=== PATIENT | female | born 1980 | race Hispanic/Latino ===

== ENCOUNTER 2016-06-17 09:45 | Emergency (ER) | payer OTHER ==
[~2016-06-17] VITALS: Ht 147.3 cm; Wt 81.8 kg
[~2016-06-17 09:45] MED LIST: ASPI-973 PO; BUPR150T12 PO; FLUO20CA25 PO; WARF5TAB PO; WARF7.5T4 PO
[2016-06-17 09:49] VITALS: BP 135/93; PULSE 72; RESP 18; O2SAT 99
--- NOTE | 2016-06-17 10:00 | ED.REPORT ---
HPI-General Illness Date of Service Jun 17, 2016 ED Provider: Jose Elias Feliciano MD A 35 year old female with a history of mechanical heart valve insertion (2012) on warfarin presents to the ED from her cardiology clinic complaining of unexplained bruising/pain to dorsum of left wrist and right upper abdomen since yesterday. Pt was sent from the Cardiology clinic due to elevated PT/INR, greater than 8. Before that she had warfarin last checked 2-3 weeks ago and it was in normal range. She has been taking her medications as prescribed. Associated symptoms include headache slightly more intense than baseline, fatigue, generalized weakness, dizziness and blurry vision. She denies tingling , numbness and any known head injury. Nursing Notes Stated Complaint: WEAK/DIZZY-SENT FROM CARDIOLOGY Chief Complaint: General Complaint Nursing Notes Reviewed: Yes Allergies: Coded Allergies: No Known Drug Allergies (Verified Allergy, Unknown, 12/20/15) Scheduled Aspirin (Aspirin) 81 Mg Tablet 162 MG PO DAILY last dose 08/17 Bupropion ER (Bupropion ER) 150 Mg Tablet.er 150 MG PO BID Fluoxetine (Fluoxetine) 20 Mg Capsule 40 MG PO DAILY Warfarin Sodium (Warfarin Sodium) 7.5 Mg Tablet 7.5 MG PO Fri, Fri, Fri, Sat last dose 08/17 Warfarin Sodium (Coumadin) 5 Mg Tablet 5 MG PO Fri, , Fri General Time Seen by MD: 09:58 Chief Complaint Other (Bruising) Hx Obtained From: Patient Arrived By: Walk-in Sudden in Onset?: Yes Onset Occurred: Yesterday Symptom Duration: Since onset Location: : Abdomen: Hand left Severity: Current: Moderate Severity: Maximum: Moderate Recent Healthcare: Recent doctor visit ([facility] Similar Sx Previous: No Past Medical History Past Medical History Notes: PCP: Dr. Freda Roman Cardiology: Dr. Low 11/04/2013 Echocardiogram stable EF 70%, + PFO 06/27/2014 echocardiogram stable, CT and negative for chest pain presentation and evaluation in the emergency department She was seen here in October 2013 for epistaxis w/ associated left sided weakness. She had a negative carotid duplex at that time. Past Medical History Anticoagulated on Coumadin Migraines, atypical H/o alcohol abuse Depression/anxiety Severe Aortic Stenosis with congenital bicuspid aortic valve s/p Mechanical valve replacement in 2012 on Coumadin Eczema Patent foramen ovale Chronic edema of hands and feet Bilateral pneumonia 2012 Back pain Pneumonia in 2015 Past Surgical History Aortic Valve replacement in 2012 Tubal Ligation Cholecystectomy Left hand surgery Tonsillectomy Reports: Cholecystectomy Reports: Tubal ligation Family History Diabetes. Mother has pacemaker. Father has CHF No family hx of [place] Smoking History Former Smoker Social History Alcohol Use: "Social" Other Social History: Local resident Ambulatory Status Independent Review of Systems Denies tingling. Full Review of Systems Constitutional: Reports: Fatigue, Weakness - generalized GI: Reports: Abdominal pain Skin: Reports Bruising, Reports Unexplained bruises (L hand, RUQ abd) Neurologic: Reports: Dizziness, Headache, Vision change (blurry vision), Denies: Numbness Complete sys rev & neg: except as marked. Physical Exam Vital Signs Vital Signs Date Time Temp Pulse Resp B/P Pulse Ox O2 Delivery O2 Flow Rate FiO2 06/17/16 12:55 36.1 74 16 122/80 97 Room Air 06/17/16 12:36 36.1 74 16 122/80 97 Room Air 06/17/16 09:49 36.2 72 18 135/93 99 Initial VS: Reviewed General/Constitutional: Awake, Alert Head / Eyes: Atraumatic, Normocephalic, PERRL, EOMI ENT: Atraumatic, Airway patent, Mucous membranes moist Neck: Atraumatic, Full range of motion Respiratory / Chest: Atraumatic, Breath sounds NL, Breath sounds = bilat, No respiratory distress, No rales, No rhonchi, No wheezing Cardiovascular: Heart rate NL, Regular rhythm, Heart sounds NL, No gallop, No murmurs, No rubs Abdomen: No guarding, No rebound Tenderness/Guarding/Rebound: Positive: Tender RUQ... (Moderate) Bruising in RUQ. Back: Atraumatic, Full range of motion Wrist / Hand: Full range of motion, Neurologic intact Bruising on dorsal left hand. Lower Extremity / Pelvis / MS: Atraumatic, Full range of motion Ankle / Foot: Atraumatic, Full range of motion Skin: Warm, Dry Neurologic: Oriented X3, Speech NL, No motor deficits, No sensory deficits Psychiatric: Affect NL, Mood NL Interpretation & Diagnostics Lab Results Interpretation Result Diagram: 06/17/16 1027 Test 06/17/16 10:27 White Blood Count 5.0th/mm3 (3.8-10.1) Red Blood Count 4.41mil/mm3 (3.90-5.20) Hemoglobin 14.5g/dL (12.0-15.6) Hematocrit 40.6% (35.0-46.0) Mean Corpuscular Volume 92.1fL (81-100) Mean Corpuscular Hemoglobin 32.9pg (27.0-35.0) Mean Corpuscular Hemoglobin Concent 35.7% (32.0-37.0) Red Cell Distribution Width 13.6% (12.3-15.4) Platelet Count 319bil/L (150-400) Neutrophils (%) (Auto) 39.3% (40-74) Lymphocytes (%) (Auto) 41.4% (14-46) Monocytes (%) (Auto) 7.0% (4-12) Eosinophils (%) (Auto) 11.3% (0-5) Basophils (%) (Auto) 0.8% (0-3) Prothrombin Time 100.6sec (8.1-12.5) Prothromb Time International Ratio 8.99ratio General Lab Results Interp 1: Labs reviewed CT Head Interpretation IMPRESSION: No acute intracranial abnormality. Dictated by: Ignacio Bar M.D. on 06/17/2016 at 10:43 Approved by: Ignacio Bar M.D. on 06/17/2016 at 10:45 Study: Head CT no contrast Interpretation / Wet Read by: Interpret - Radiologist Re-Eval/Medical Decision Source of Hx: Old records Time of Eval: 11:17 Re-Evaluation/Progress Note: Rechecked patient, explained test results. All questions addressed. Counseled Regarding: Diagnosis, Lab results, Need for follow-up, When/why to return to ED Discharge & Departure Primary Impression: Subtherapeutic international normalized ratio (INR) Additional Impression: Headache Headache type: tension-type Headache chronicity pattern: unspecified pattern Intractability: not intractable Qualified Code: G44.209 - Tension- type headache, unspecified, not intractable Disposition: Home Discharge Condition All VS Reviewed: Yes Condition: Stable Patient Instructions: Warfarin (By mouth) Additional Instructions: Follow up tomorrow with your Coumadin clinic. Follow up with your primary care doctor if your headache persists. Your INR today was 8.9 and you were administered 2.5 mg of vitamin K IV. Do not take your warfarin today or tomorrow until after your INR level is checked. Referrals: Rafaela Paulino MD (PCP) Scribe Attestation Portions of this note were transcribed by Tao Ornelas and Jocelyne Mckeon. I, , personally performed the history, physical exam, and medical decision-making: I reviewed and confirmed the accuracy for the information in the transcribed note. Signed by: Tao Ornelas and mikala Salvador, 06/17/16 1154. copies to: Rafaela Paulino MD, Kirk H MD Jun 17, 2016 10:00 Tao Ornelas Jun 17, 2016 10:17 Jocelyne Mckeon Jun 17, 2016 11:26
[2016-06-17] MEDS ORDERED: 0.9% Sodium Chloride 1,000 ML IV ONE (10:12)
[2016-06-17] MEDS ORDERED: MetoCLOpramide 5 mg/mL 2 mL Inj IVPUSH ONE (10:15)
[2016-06-17] MEDS ORDERED: Acetaminophen IV 1,000 MG in IV Premix 1 EACH IV ONE (10:15)
[2016-06-17] MEDS ORDERED: Phytonadione (Adult) 2.5 MG in Dextrose 5%-Pha MIX 50 ML IV ONE (10:15)
[2016-06-17 10:35] LABS: BASOPHILS % (AUTO) 0.8 % (0-3); EOSINOPHILS % (AUTO) 11.3 % (0-5); Mean Corpuscular Hemoglobin 32.9 pg (27.0-35.0); Mean Corpuscular Volume 92.1 fL (81-100); NEUTROPHILS % (AUTO) 39.3 % (40-74); Platelet Count 319 bil/L (150-400)
--- NOTE | 2016-06-17 10:46 | DRSVH ---
PROCEDURE: CT BRAIN WITHOUT CONTRAST ([id number]) INDICATIONS: headache TECHNIQUE: Noncontrast 4.5 mm thick angled axial sections acquired from the foramen magnum to the vertex, with c oronal reformats. COMPARISON: [facility], CT, CT BRAIN WO CON, 10/08/2015, 17:36. [facility], CT, CT BRAIN WO CON, 09/16/2015, 12:07. [facility], CT, CT BRAIN WO CON, 03/02/2015, 14:2 0. FINDINGS: Image quality: Excellent. CSF spaces: Basal cisterns are patent. No extra-axial fluid collections. Ventricles are normal in size and shape. Brain: No midline shift. No intracranial masses or hemorrhage. [place]-white matter interface is norm al. Skull and face: Calvarium and visualized facial bones are intact, without suspicious lesions. Sinuses: Visualized sinuses and mastoids are clear. IMPRESSION: No acute intracranial abnormality. Dictated by: Ignacio Bar M.D. on 06/17/2016 at 10:43 Approved by: Ignacio Bar M.D. on 06/17/2016 at 10:45
[2016-06-17 11:05] LABS: INR 8.99 ratio
[2016-06-17] MEDS ORDERED: Haloperidol 5 mg/mL Inj IVPUSH ONE (11:25)
[2016-06-17] MEDS ORDERED: Dexamethasone 10 mg/mL Inj IVPUSH ONE (11:25)
[2016-06-17 12:36] VITALS: BP 122/80; PULSE 74; RESP 16; O2SAT 97
[2016-06-17 12:55] VITALS: BP 122/80; PULSE 74; RESP 16; O2SAT 97
== END 2016-06-17 12:55 | disposition home or self-care (01) ==
LOC: SED 09:45
DX: R79.1 Abnormal coagulation profile (principal); G44.209 Tension-type headache, unspecified, not intractable; Z79.01 Long term (current) use of anticoagulants; Z79.82 Long term (current) use of aspirin; Z95.2 Presence of prosthetic heart valve; Z87.891 Personal history of nicotine dependence
CPT/HCPCS: 36415; 70450; 85025; 85610; 96361; 96374; 96375; 99285; G0463; J0131; J1100; J1200; J1630; J2765; J3430; J7030